=== PATIENT | male | born 1990 | race American Indian/Alaskan Native ===

== ENCOUNTER 2016-11-30 09:25 | Emergency (ER) | payer MEDICAID ==
[2016-11-30 09:53] VITALS: BP 132/77
--- NOTE | 2016-11-30 09:54 | Emergency Department Report ---
Chief Complaint: Chest Pain Stated Complaint: CHEST PAIN,PAIN IN LUNGS Time Seen by Provider: 11/30/16 09:49 - HPI History of Present Illness: PT reports intermittent chest pain x weeks. PT states the pains are brief and last around 5 minutes PT also reports lbp since Set 2015. PT states he was previously seen in ED for same. - ROS Review of Systems: - fever - cough - numbness - dysuria - incontinence - Exam Physical Exam: Obese Male Steady gait lungs diminished khari R paraspinal lumbar tenderness MSE screening note: Focused history and physical exam performed. Due to findings the following was ordered: ekg, xr, labs ED Disposition for MSE Condition: Stable
[2016-11-30 10:24] LABS: Basophils % (Auto) 0.9 % (0.0-1.8); Eosinophils % (Auto) 5.4 % (0.0-4.3); Hemoglobin 14.8 gm/dl (11.8-15.2); Mean Corpuscular HGB Conc 32 % (32-34); Mean Corpuscular Volume 77 fl (84-94); Platelet Count 292 K/mm3 (140-440); Red Blood Count 5.97 M/mm3 (3.65-5.03); Red Cell Distribution Width 15.8 % (13.2-15.2); White Blood Count 7.3 K/mm3 (4.5-11.0)
[2016-11-30 10:25] LABS: Mean Corpuscular Hemoglobin 25 pg (28-32)
[2016-11-30 10:37] LABS: Alanine Aminotransferase 32 units/L (7-56); Albumin 4.1 g/dL (3.9-5); Albumin/Globulin Ratio 1.2 %; Alkaline Phosphatase 181 units/L (35-129); Anion Gap 17 mmol/L; BUN/Creatinine Ratio 11.42; Blood Urea Nitrogen 8 mg/dL (9-20); Carbon Dioxide 25 mmol/L (22-30); Glucose 153 mg/dL (75-100); Potassium 3.9 mmol/L (3.6-5.0); Sodium 140 mmol/L (137-145); Total Protein 7.4 g/dL (6.3-8.2)
--- NOTE | 2016-11-30 10:55 | XRay Report ---
Chest 2 views: History: Chest pain. Findings: Heart size is upper limit of normal. Trachea is midline. No consolidation, pneumothorax or pleural effusion. Impression: No acute cardiopulmonary findings.
--- NOTE | 2016-12-04 10:48 | ED Elopement Review ---
ED Pt Elopement review - Results review Lab results: Laboratory Tests 11/30/16 11/30/16 10:10 10:10 WBC 7.3 RBC 5.97 H Hgb 14.8 Hct 46.0 H MCV 77 L MCH 25 L MCHC 32 RDW 15.8 H Plt Count 292 Lymph % (Auto) 27.1 Castro % (Auto) 8.4 H Eos % (Auto) 5.4 H Baso % (Auto) 0.9 Lymph # 2.0 Castro # 0.6 Eos # 0.4 Baso # 0.1 Seg Neutrophils % 58.2 Seg Neutrophils # 4.3 Sodium 140 Potassium 3.9 Chloride 102.0 Carbon Dioxide 25 Anion Gap 17 BUN 8 L Creatinine 0.7 L Estimated GFR > 60 BUN/Creatinine Ratio 11.42 Glucose 153 H Calcium 9.0 Total Bilirubin 1.20 AST 24 ALT 32 Alkaline Phosphatase 181 H Troponin T < 0.010 Total Protein 7.4 Albumin 4.1 Albumin/Globulin Ratio 1.2 - Call Back decision Pt Call Back Decision: No action required
== END 2016-11-30 10:11 | disposition left against medical advice (07) ==
LOC: ED 09:25
DX: R07.9 Chest pain, unspecified (principal); Z53.21 Procedure and treatment not carried out due to patient leaving prior to being seen by health care provider
CPT/HCPCS: 36415; 71020; 80053; 84484; 85025; 93005; 93010